=== PATIENT | male | born 1965 | race Caucasian/White ===

== ENCOUNTER 2017-07-28 18:16 | Inpatient (IN) | payer BC ==
[2017-07-28] MEDS ORDERED: ONDANSETRON 4 MG/2 ML VIAL IVP STA (19:04)
[2017-07-28] MEDS ORDERED: SODIUM CHLORIDE 0.9% 1,000 ML IV STA ×2 (19:04→20:10)
[2017-07-28] MEDS ORDERED: FAMOTIDINE 20 MG/2 ML VIAL IV STA (19:05)
--- NOTE | 2017-07-28 19:20 | ED ---
Nausea/Vomiting/Diarrhea HPI - General Chief complaint: Nausea/Vomiting/Diarrhea Stated complaint: Vomiting Time Seen by Provider: 07/28/17 18:25 Source: patient Mode of arrival: ambulatory Limitations: no limitations - History of Present Illness Initial comments: Pt present with nausea x 3 days. Patient states he feels dehydrated and has had decreased oral intake because he gets nauseated anytime he tries to eat. Patient said he had one mild bout of diarrhea this morning, denies any blood in his stools. Patient denies any abdominal pain. Patient states he's had dry heaves but no actual vomiting. Patient admits to mild rare nonproductive cough. Patient denies fevers, chills, headaches, constipation. Patient is to decreased urination over the past 3 days. Patient states she has a history of hypertension, denies any other past medical history. Denies history of abdominal surgeries. MD complaint: nausea - Related Data Home Medications Medication Instructions Recorded Confirmed Chlorthalidone 25 mg PO DAILY 11/04/15 07/28/17 Telmisartan 80 mg PO DAILY 11/04/15 07/28/17 Citalopram Hydrobromide [CeleXA] 10 mg PO DAILY 07/28/17 07/28/17 Multivitamins, Thera [Multivitamin 1 tab PO DAILY 07/28/17 07/28/17 (formulary)] Potassium 99 mg PO DAILY 07/28/17 07/28/17 Allergies Allergy/AdvReac Type Severity Reaction Status Date / Time No Known Allergies Allergy Verified 07/28/17 18:31 Review of Systems ROS Statement: Those systems with pertinent positive or pertinent negative responses have been documented in the HPI. ROS Other: All systems not noted in ROS Statement are negative. Constitutional: Denies: fever, chills, weakness Eyes: Denies: vision change ENT: Denies: throat pain, congestion Respiratory: Reports: cough. Denies: dyspnea, wheezes Cardiovascular: Denies: chest pain, palpitations Endocrine: Reports: fatigue Gastrointestinal: Reports: nausea, diarrhea. Denies: abdominal pain, vomiting, constipation, hematemesis, melena, hematochezia Genitourinary: Reports: other (Urine decreased). Denies: urgency, dysuria, frequency Musculoskeletal: Denies: back pain Skin: Denies: rash, lesions Neurological: Denies: headache Past Medical History Past Medical History: Hypertension History of Any Multi-Drug Resistant Organisms: None Reported Additional Past Surgical History / Comment(s): wisdom teeth removed Past Anesthesia/Blood Transfusion Reactions: No Reported Reaction Past Psychological History: No Psychological Hx Reported Smoking Status: Never smoker Past Alcohol Use History: Daily Past Drug Use History: None Reported - Past Family History Mother Family Medical History: No Reported History General Exam - General Exam Comments Initial Comments: Sitting up in bed. No acute distress. Conversing normally. Calm, pleasant. Limitations: no limitations General appearance: alert, in no apparent distress Head exam: Present: atraumatic, normocephalic Eye exam: Present: PERRL, EOMI ENT exam: Present: mucous membranes dry Neck exam: Present: full ROM. Absent: tenderness Respiratory exam: Present: normal lung sounds bilaterally. Absent: respiratory distress, wheezes, rales Cardiovascular Exam: Present: regular rate, normal rhythm GI/Abdominal exam: Present: soft. Absent: distended, tenderness, guarding, rebound, rigid, hernia (Nontender) Extremities exam: Present: normal inspection Neurological exam: Present: alert, oriented X3 Psychiatric exam: Present: normal affect, normal mood Skin exam: Present: warm, dry, intact, normal color. Absent: rash Course Vital Signs 07/28/17 07/28/17 07/28/17 18:18 19:14 20:36 Temperature 98.0 F Pulse Rate 92 86 92 Respiratory 20 18 18 Rate Blood Pressure 169/85 144/76 137/78 O2 Sat by Pulse 98 94 L 93 L Oximetry 07/28/17 20:37 Temperature Pulse Rate Respiratory Rate Blood Pressure O2 Sat by Pulse 94 L Oximetry Medical Decision Making - Medical Decision Making IV fluids, Zofran given. Patient denies abdominal pain, is nontender on exam. Patient flew be positive, Tamiflu ordered. Patient will be placed in isolation. Sodium 105, potassium 2.2. Potassium replaced 60 mEq orally, 20 mEq IV. Spoke with the admitting physician Dr. Ruth, up to patient condition results , discussed slow correction of sodium, he requests sodium tabs 4 times a day, thousand milliliter free water restriction, 3% hypertonic saline protocol, ICU admission. Spoke with Dr. Trevino, updated patient condition results, agrees with ICU admission. Patient updated with results and plan. Patient remains well appearing, conversing normally. No neurologic deficits on exam. No complaints of neurologic symptoms. - Lab Data Result diagrams: 07/28/17 19:15 07/28/17 19:15 Lab Results 07/28/17 07/28/17 07/28/17 Range/Units 19:15 19:15 19:15 WBC 9.9 (3.8-10.6) k/uL RBC 4.69 (4.30-5.90) m/uL Hgb 15.4 (13.0-17.5) gm/dL Hct 41.7 (39.0-53.0) % MCV 88.9 (80.0-100.0) fL MCH 32.8 (25.0-35.0) pg MCHC 36.9 (31.0-37.0) g/dL RDW 11.0 L (11.5-15.5) % Plt Count 299 (150-450) k/uL Neutrophils % (Manual) 83 % Band Neutrophils % 3 % Lymphocytes % (Manual) 12 % Monocytes % (Manual) 2 % Neutrophils # (Manual) 8.50 H (1.3-7.7) k/uL Lymphocytes # (Manual) 1.19 (1.0-4.8) k/uL Monocytes # (Manual) 0.20 (0-1.0) k/uL Nucleated RBCs 0 (0-0) /100 WBC Manual Slide Review Performed RBC Morphology Normal Hyperchromasia Marked Sodium 105 L* (137-145) mmol/L Potassium 2.2 L* (3.5-5.1) mmol/L Chloride 52 L* (98-107) mmol/L Carbon Dioxide 39 H (22-30) mmol/L Anion Gap 14 mmol/L BUN 17 (9-20) mg/dL Creatinine 0.80 (0.66-1.25) mg/dL Est GFR (MDRD) Af Amer >60 (>60 ml/min/1.73 sqM) Est GFR (MDRD) Non-Af >60 (>60 ml/min/1.73 sqM) Glucose 139 H (74-99) mg/dL Calcium 8.9 (8.4-10.2) mg/dL Total Bilirubin 3.6 H (0.2-1.3) mg/dL AST 73 H (17-59) U/L ALT 62 (21-72) U/L Alkaline Phosphatase 81 (38-126) U/L Total Protein 6.8 (6.3-8.2) g/dL Albumin 4.4 (3.5-5.0) g/dL Lipase 150 (23-300) U/L Influenza Type A RNA Not Detected (Not Detectd) Influenza Type B (PCR) Detected H (Not Detectd) Disposition Clinical Impression: Influenza B, Hypokalemia, Hyponatremia Disposition: ADMITTED IP TO THIS HOSP Condition: Good Referrals: Morgan Wright MD [Primary Care Provider] - 1-2 days
[2017-07-28 19:38] LABS: ALT 62 U/L (21-72); AST 73 U/L (17-59); Albumin 4.4 g/dL (3.5-5.0); Alkaline Phosphatase 81 U/L (38-126); Anion Gap 14 mmol/L; Blood Urea Nitrogen 17 mg/dL (9-20); Calcium 8.9 mg/dL (8.4-10.2); Carbon Dioxide 39 mmol/L (22-30); Glucose 139 mg/dL (74-99); Lipase 150 U/L (23-300); Total Bilirubin 3.6 mg/dL (0.2-1.3); Total Protein 6.8 g/dL (6.3-8.2)
[2017-07-28 19:40] LABS: HCT 41.7 % (39.0-53.0); HGB 15.4 gm/dL (13.0-17.5); Hyperchromasia Marked; MCH 32.8 pg (25.0-35.0); MCHC 36.9 g/dL (31.0-37.0); MCV 88.9 fL (80.0-100.0); Mean Platelet Volume 6.2; Platelet Count 299 k/uL (150-450); RBC 4.69 m/uL (4.30-5.90); WBC 9.9 k/uL (3.8-10.6)
[2017-07-28 19:50] LABS: Potassium 2.2 mmol/L (3.5-5.1); Sodium 105 mmol/L (137-145)
[2017-07-28 19:51] LABS: Chloride 52 mmol/L (98-107)
--- NOTE | 2017-07-28 19:56 | XR ---
EXAMINATION TYPE: XR chest 2V DATE OF EXAM: 07/28/2017 COMPARISON: NONE INDICATION: Cough congestion TECHNIQUE: Frontal and lateral views of the chest are obtained. FINDINGS: The heart size is normal. The pulmonary vasculature is normal. The lungs are clear. Azygos fissure is noted. IMPRESSION: 1. No acute pulmonary process.
[2017-07-28] MEDS ORDERED: POTASSIUM CHLORIDE ORAL LIQUID 40 MEQ/30 ML CUP PO ONE (20:09)
[2017-07-28 20:17] LABS: Band Neutrophils % 3 %; Lymphocytes # (M) 1.19 k/uL (1.0-4.8); Neutrophils % (M) 83 %; Nucleated Red Blood Cells 0 /100 WBC (0-0); Total Cells Counted 100
[2017-07-28] MEDS: POTASSIUM CHLORIDE 10 MEQ in SODIUM CHLORIDE 0.9% 100 ML IV SCH ×2 (20:59→22:09)
[2017-07-28] MEDS: OSELTAMIVIR 75 MG CAP PO SCH (22:07)
[2017-07-28] MEDS: SODIUM BICARBONATE TAB 650 MG TAB PO SCH (22:28)
[2017-07-28 22:48] LABS: Appearance,Urine Clear (Clear); Bilirubin,Urine Negative (Negative); Blood,Urine Negative (Negative); Color,Urine Yellow; Glucose,Urine (UA) Negative (Negative); Hyaline Casts,Urine 1 /lpf (0-2); Ketones,Urine 2+ (Negative); Leukocyte Esterase,Urine Negative (Negative); Mucus,Urine Rare /hpf; Nitrite,Urine Negative (Negative); Protein,Urine 1+ (Negative); RBC,Urine <1 /hpf (0-5); Specific Gravity,Urine 1.017 (1.001-1.035); Urobilinogen,Urine <2.0 mg/dL (<2.0); WBC,Urine 2 /hpf (0-5)
[2017-07-28] MEDS ORDERED: NALOXONE 0.4 MG/ML 1 ML VIAL IV PRN (23:38)
[2017-07-29] MEDS ORDERED: SODIUM CHLORIDE 3%(HYPERTONIC) 500 ML IV SCH (00:45)
[2017-07-29 01:00] LABS: Glucose,Whole Blood 112 mg/dL (75-99)
[2017-07-29 01:13] VITALS: BMI 27.6
[2017-07-29] MEDS: SODIUM BICARBONATE TAB 650 MG TAB PO SCH ×3 (01:54→12:24)
[2017-07-29] MEDS: POTASSIUM CHLORIDE ER 20 MEQ TAB.ER PO SCH ×5 (03:17→09:58)
[2017-07-29 05:41] LABS: Basophils % (A) 0 %; Eosinophils # (A) 0.1 k/uL (0-0.7); Eosinophils % (A) 1 %; HCT 40.3 % (39.0-53.0); HGB 14.6 gm/dL (13.0-17.5); Hyperchromasia Moderate; Lymphocytes # (A) 1.1 k/uL (1.0-4.8); Lymphocytes % (A) 10 %; MCH 32.9 pg (25.0-35.0); MCHC 36.2 g/dL (31.0-37.0); MCV 90.9 fL (80.0-100.0); Mean Platelet Volume 6.2; Monocytes # (A) 0.5 k/uL (0-1.0); Monocytes % (A) 5 %; Neutrophils # (A) 9.1 k/uL (1.3-7.7); Neutrophils % (A) 84 %; Platelet Count 321 k/uL (150-450); RBC 4.43 m/uL (4.30-5.90); RDW 11.2 % (11.5-15.5); WBC 10.8 k/uL (3.8-10.6)
[2017-07-29 06:26] LABS: Anion Gap 9 mmol/L; Blood Urea Nitrogen 13 mg/dL (9-20); Calcium 8.2 mg/dL (8.4-10.2); Carbon Dioxide 36 mmol/L (22-30); Glucose 99 mg/dL (74-99); Magnesium 2.1 mg/dL (1.6-2.3); Phosphorus 1.4 mg/dL (2.5-4.5)
[2017-07-29 06:35] LABS: Sodium 111 mmol/L (137-145)
[2017-07-29 06:36] LABS: Chloride 66 mmol/L (98-107); Potassium 2.8 mmol/L (3.5-5.1)
[2017-07-29] MEDS ORDERED: SODIUM CHLORIDE 0.9% 1,000 ML IV SCH ×2 (06:45→17:15)
[2017-07-29] MEDS ORDERED: Phosphorus Replacement Protoco 1 EACH MISC MISCELLANE PRN (06:48)
[2017-07-29 07:09] LABS: Phosphorus 1.3 mg/dL (2.5-4.5)
[2017-07-29] MEDS: LOSARTAN 50 MG TAB PO SCH (08:36)
[2017-07-29] MEDS: CITALOPRAM HYDROBROMIDE 10 MG TAB PO SCH (08:36)
[2017-07-29] MEDS: OSELTAMIVIR 75 MG CAP PO SCH ×2 (08:36→20:34)
[2017-07-29] MEDS: PANTOPRAZOLE 40 MG TABLET PO SCH (08:36)
[2017-07-29] MEDS: HEPARIN SODIUM,PORCINE 5,000 UNIT/ML 1 ML VIAL SQ SCH ×2 (08:38→20:34)
[2017-07-29] MEDS: POTASSIUM PHOSPHATE 10 MMOL in SODIUM CHLORIDE 0.9% 250 ML IV SCH ×2 (08:43→11:49)
[2017-07-29] MEDS ORDERED: CHLORTHALIDONE 25 MG TAB PO SCH (09:00)
[2017-07-29 10:14] LABS: Anion Gap 12 mmol/L; Blood Urea Nitrogen 11 mg/dL (9-20); Calcium 7.8 mg/dL (8.4-10.2); Carbon Dioxide 28 mmol/L (22-30); Glucose 95 mg/dL (74-99); Potassium 3.4 mmol/L (3.5-5.1)
[2017-07-29 10:19] LABS: Chloride 72 mmol/L (98-107); Sodium 112 mmol/L (137-145)
--- NOTE | 2017-07-29 10:41 | P.CNPUL ---
History of Present Illness Consult date: 07/29/17 Reason for consult: other Chief complaint: Hyponatremia, dehydration History of present illness: Consult dated 07/29/2017 This is a 52-year-old male who was seen in the emergency room. I was called by the emergency room physician. The patient has had nausea for 3 days with poor oral intake. He apparently states he really did not feel like eating or drinking anything. I did also one episode of diarrhea. Anyway, the patient denied any fever chills. Denies any chest pain or chest discomfort. There is no shortness of breath. Of note was the fact that the patient had impaired urination over last 3 days and also was found to have a sodium level of 105 on electrolyte profile. He does have a history of hypertension. The patient's sodium increased from 105-111 just on a saline IV. The patient is on chlorthalidone as a diuretic which is been known to cause hyponatremia. The patient feels very very weak. His mucous membranes are dry. His urine output is poor. He states he is feeling a bit better than he did in the emergency room yesterday. Currently is not receiving any supplemental oxygen. His IV is saline at 50 mL an hour. Potassium is still low at 2.8. Review of Systems A 12 point review of system is positive for weakness and fatigue. He also feels dehydrated and dry. He's got nausea. One episode of diarrhea. Also complains of poor urine output. Past Medical History Past Medical History: Hypertension History of Any Multi-Drug Resistant Organisms: None Reported Past Surgical History: No Surgical Hx Reported Additional Past Surgical History / Comment(s): wisdom teeth removed Past Anesthesia/Blood Transfusion Reactions: No Reported Reaction Past Psychological History: No Psychological Hx Reported Smoking Status: Never smoker Past Alcohol Use History: Daily Past Drug Use History: None Reported - Past Family History Mother Family Medical History: No Reported History Medications and Allergies Home Medications Medication Instructions Recorded Confirmed Type Chlorthalidone 25 mg PO DAILY 11/04/15 07/28/17 History Telmisartan 80 mg PO DAILY 11/04/15 07/28/17 History Citalopram Hydrobromide [CeleXA] 10 mg PO DAILY 07/28/17 07/28/17 History Multivitamins, Thera [Multivitamin 1 tab PO DAILY 07/28/17 07/28/17 History (formulary)] Potassium 99 mg PO DAILY 07/28/17 07/28/17 History Allergies Allergy/AdvReac Type Severity Reaction Status Date / Time No Known Allergies Allergy Verified 07/28/17 18:31 Physical Exam Osteopathic Statement: *. No significant issues noted on an osteopathic structural exam other than those noted in the History and Physical/Consult. Vitals: Vital Signs Temp Pulse Resp BP Pulse Ox 07/29/17 08:00 98 F 82 28 H 128/81 93 L 07/29/17 07:00 78 14 109/68 95 07/29/17 06:00 81 13 119/72 94 L 07/29/17 05:00 78 13 133/69 97 07/29/17 04:00 97.9 F 79 15 140/74 98 07/29/17 03:00 82 24 138/70 96 07/29/17 02:00 98 22 124/76 97 07/29/17 01:00 97.8 F 87 20 123/78 97 07/29/17 00:13 97.2 F L 86 15 134/75 97 07/28/17 23:03 97.5 F L 88 18 127/78 97 07/28/17 22:11 97.5 F L 88 18 139/77 96 07/28/17 20:37 94 L 07/28/17 20:36 92 18 137/78 93 L 07/28/17 19:14 86 18 144/76 94 L 07/28/17 18:18 98.0 F 92 20 169/85 98 Intake and Output 07/28/17 07/29/17 07/29/17 22:59 06:59 14:59 Intake Total 140 100 Output Total 50 600 Balance -50 -460 100 Intake: IV 120 100 Sodium Chloride 0.9% 1, 100 000 ml @ 50 mls/hr IV . Q20H [facility] Rx#:[id number] Sodium Chloride 3%( 120 Hypertonic) 500 ml @ 20 mls/hr IV .Q24H [facility] Rx#: [id number] Oral 20 Output: Urine 50 600 Other: Voiding Method Urinal # Voids 1 1 # Bowel Movements 1 1 Weight 77.7 kg No acute distress, oriented 3. HEENT examination is grossly unremarkable. Mucous membranes dry. No oral lesions. Neck supple. Full range of motion. No adenopathy thyromegaly or neck vein distention. Cardiovascular examination reveals regular rhythm rate. S1-S2 normal. No S3 or S4. No discernible murmur noted. Lungs reveal clear breath sounds. Her sounds are equal bilaterally. No adventitious lung sounds including wheezes rhonchi or crackles. Abdomen soft bowel sounds are heard. No masses or tenderness. Extremities are intact. No cyanosis clubbing or edema. Skin is without rash or lesion. Neurologic examination is brief but nonfocal. Results - Laboratory Findings CBC and BMP: 07/29/17 05:23 07/29/17 09:31 Abnormal lab findings: Abnormal Labs 07/28/17 07/28/17 07/28/17 19:15 19:15 19:15 WBC RDW 11.0 L Neutrophils # Neutrophils # (Manual) 8.50 H Sodium 105 L* Potassium 2.2 L* Chloride 52 L* Carbon Dioxide 39 H Glucose 139 H POC Glucose (mg/dL) Calcium Phosphorus Total Bilirubin 3.6 H AST 73 H Urine Protein Urine Ketones Urine Mucus Influenza Type B (PCR) Detected H 07/28/17 07/29/17 07/29/17 22:28 00:58 01:05 WBC RDW Neutrophils # Neutrophils # (Manual) Sodium 108 L* Potassium Chloride Carbon Dioxide Glucose POC Glucose (mg/dL) 112 H Calcium Phosphorus Total Bilirubin AST Urine Protein 1+ H Urine Ketones 2+ H Urine Mucus Rare H Influenza Type B (PCR) 07/29/17 07/29/17 07/29/17 01:05 05:23 05:23 WBC 10.8 H RDW 11.2 L Neutrophils # 9.1 H Neutrophils # (Manual) Sodium 111 L* Potassium 2.7 L* 2.8 L* Chloride 66 L* Carbon Dioxide 36 H Glucose POC Glucose (mg/dL) Calcium 8.2 L Phosphorus 1.4 L Total Bilirubin AST Urine Protein Urine Ketones Urine Mucus Influenza Type B (PCR) 07/29/17 07/29/17 05:23 09:31 WBC RDW Neutrophils # Neutrophils # (Manual) Sodium 112 L* Potassium 3.4 L Chloride 72 L* Carbon Dioxide Glucose POC Glucose (mg/dL) Calcium 7.8 L Phosphorus 1.3 L Total Bilirubin AST Urine Protein Urine Ketones Urine Mucus Influenza Type B (PCR) - Diagnostic Findings Chest x-ray: image reviewed (The patient's evaluated. The patient's interviewed. Labs x-rays a medications are all reviewed.) Assessment and Plan Assessment: Assessment Hyponatremia, likely related to dehydration and exacerbated by the diuretic the patient's on History of hypertension Profound electrolyte disturbance including hyponatremia and hypokalemia. Nausea vomiting and diarrhea with poor oral intake of both food and fluids Plan: Plan dated 07/29/2017 The patient being rehydrated. Sodium has gone from 105 to 112, which is appropriate. Sodium should not rise more than 8 mEq per liter and the first 24 hours. The patient's feeling a bit less dehydrated. Mucous membranes are bit more moist. His appetite still poor. We'll continue to follow. Urine output is poor. Time with Patient: Greater than 30
[2017-07-29 10:59] LABS: Potassium,Urine Random 42.9 mmol/L
[2017-07-29 11:04] LABS: Creatinine,Urine Random 109.8 mg/dL
--- NOTE | 2017-07-29 17:54 | HP ---
HISTORY AND PHYSICAL DATE OF ADMISSION: 07/28/17 PRESENTING COMPLAINT: Nausea, vomiting, diarrhea. HISTORY OF PRESENTING COMPLAINT: A very pleasant 52-year-old patient of Dr. Wright whose chronic stable medical conditions include that of hypertension, over a week ago started up with nausea, vomiting, diarrhea which continues to get worse. Denies any obvious fevers, minimal congestion, weak, tired, run down. Denies any blood in the stools. Just run down. Patient presented to the ER was found have a sodium of 105 and Influenza B positive. Started on Tamiflu, admitted to the ICU. Also, hypertonic saline was ordered overnight. Still feels weak, tired, run down. REVIEW OF SYSTEMS: CONSTITUTIONAL: Weak, tired. HEENT: None. RESPIRATORY: None. CARDIOVASCULAR: None. GASTROINTESTINAL: As above. GENITOURINARY: None. MUSCULOSKELETAL: None. DERMATOLOGIC: None. HEMATOLOGIC: None. LYMPHATIC: None. PSYCHIATRY: None. NEUROLOGICAL: None. PAST MEDICAL HISTORY: Hypertension. PAST SURGICAL HISTORY: None. SOCIAL HISTORY: Does not smoke. Alcohol about 2 beers a day. Lives by himself. Patient works at . FAMILY HISTORY: Reviewed; noncontributory to presentation. HOME MEDICATIONS: 1. Telmisartan 80 mg p.o. daily. 2. Potassium 99 mEq p.o. daily. 3. Multivitamin 1 tablet p.o. daily. 4. Celexa 10 mg p.o. daily. 5. Chlorthalidone 25 mg p.o. daily. ALLERGIES: None. PHYSICAL EXAMINATION: Vital signs on presentation: Temperature 98, pulse 92, respiratory 20, blood pressure 169/85, pulse ox 98% on room air. GENERAL APPEARANCE: Average build, lying in bed, tired appearing. EYES: Pupils equal. Conjunctivae normal. HEENT: Oral cavity normal. NECK: JVD not raised. Mass not palpable. RESPIRATORY: Effort, lungs are clear. CARDIOVASCULAR: 1st and 2nd sounds normal. No edema. ABDOMEN: Soft, nontender. Liver and spleen not palpable. LYMPHATIC: No lymph palpable in neck or axillae. PSYCHIATRY: Alert and oriented x3. Mood and affect normal. NEUROLOGICAL: Pupils equal. Cranial nerves grossly intact. Power and sensation grossly intact. INVESTIGATIONS: White count 9.9, repeat is 10.8, hemoglobin 15.4, sodium was 105, potassium was 2.2, chloride 62, repeat sodium was 112, chloride 72. BUN and creatinine are normal. The patient's bicarb is 39. Influenza B was detected. ASSESSMENT: 1. Acute influenza B infection. 2. Probably viral gastroenteritis. 3. Severe hyponatremia with hypochloremia from severe nausea, vomiting and probably poor intake of salt intake. 4. Severe hypokalemia. PLAN: Patient did receive hypertonic saline in the ICU. Will switch over because of hypovolemia, will switch the patient over to normal saline. Patient also needs a chloride component of the same. We will put the patient on fluid restriction of 1000 mL a day and avoid tea, coffee and free fluids. Will also add salt tablets. Because the patient is in ICU Dr. Trevino from Critical Care was consulted. Patient's potassium was aggressively being replaced. MMTRAVL / BHAVANIN: [id number] /
[2017-07-29] MEDS ORDERED: SODIUM CHLORIDE TAB 1 GM TAB PO SCH (18:00)
[2017-07-30 00:47] LABS: Anion Gap 9 mmol/L; Blood Urea Nitrogen 10 mg/dL (9-20); Calcium 8.7 mg/dL (8.4-10.2); Carbon Dioxide 35 mmol/L (22-30); Glucose 96 mg/dL (74-99); Potassium 3.3 mmol/L (3.5-5.1); Sodium 124 mmol/L (137-145)
[2017-07-30 00:58] LABS: Chloride 80 mmol/L (98-107)
[2017-07-30] MEDS ORDERED: Potassium Replacement Protocol 1 EACH MISC MISCELLANE PRN (01:07)
[2017-07-30] MEDS: POTASSIUM CHLORIDE ER 20 MEQ TAB.ER PO SCH ×2 (02:35→05:13)
[2017-07-30] MEDS ORDERED: DEXTROSE 5% IN WATER 1,000 ML IV ONE (06:29)
[2017-07-30 06:35] LABS: Anion Gap 10 mmol/L; Blood Urea Nitrogen 10 mg/dL (9-20); Calcium 8.8 mg/dL (8.4-10.2); Carbon Dioxide 32 mmol/L (22-30); Chloride 82 mmol/L (98-107); Glucose 94 mg/dL (74-99); Magnesium 2.4 mg/dL (1.6-2.3); Phosphorus 1.5 mg/dL (2.5-4.5); Potassium 3.1 mmol/L (3.5-5.1); Sodium 124 mmol/L (137-145)
[2017-07-30] MEDS: PANTOPRAZOLE 40 MG TABLET PO SCH (06:39)
[2017-07-30] MEDS ORDERED: POTASSIUM CHLORIDE ER 20 MEQ TAB.ER PO STA ×3 (07:04→21:36)
[2017-07-30] MEDS ORDERED: POTASSIUM PHOSPHATE 15 MMOL in SODIUM CHLORIDE 0.9% 250 ML IV ONE (07:15)
--- NOTE | 2017-07-30 07:22 | CONS ---
CONSULTATION DATE OF CONSULTATION: 07/29/2017 REASON FOR CONSULT: Hyponatremia. HISTORY OF PRESENT ILLNESS: The patient is a 52-year-old male who was admitted to the hospital with complaints of not feeling well. He also had some nausea, vomiting, and diarrhea. The patient denies any prior history of hyponatremia. He has been on chlorthalidone at home for hypertension. He denied any numbness, tingling, weakness. The patient's sodium was 108 mEq/L on initial admission. He was initially placed on 3% saline, which was eventually discontinued when serum sodium was at 112 mEq/L. The patient has already had a more than 10 mEq increase in his serum sodium in about 17 hours where we would want about 10 to 12 in 24 hours. His saline was discontinued this morning. Urine sodium was 58. Urine osmolality was at 500 on initial admission. Patient's blood pressure has been slightly on the lower side with systolic around 105 to 118 . He was not hypotensive on initial admission. PAST MEDICAL HISTORY: Hypertension. MEDICATIONS: Medications prior to admission included Celexa, potassium, chlorthalidone, telmisartan, multivitamins. SOCIAL HISTORY: Negative for smoking, drug abuse or alcohol abuse. ALLERGIES: None. REVIEW OF SYSTEMS: As per HPI, other systems negative. PHYSICAL EXAMINATION: On examination, patient is comfortable, awake, alert, oriented x3, is not in any acute distress. Blood pressure is 119/79 this morning. Patient is afebrile. EXAMINATION OF THE HEART: S1, S2. EXAMINATION OF THE LUNGS: Bilateral breath sounds are heard. Abdomen is soft, nontender. Examination of the lower extremities shows no evidence of edema. APPLICATIONS SYSTEM ANALYST exam is grossly intact. Patient moving all 4 extremities. LABS: Labs show serum sodium of 112 this morning and 117 at 1:30 p.m. Potassium was low on admission initially at 2.7, increased up to 3.4. Hemoglobin at 14.6 g/dL. Phosphorus was low at 1.3. Cortisol was 18. Urine osmolality 500. Urine sodium 58. ASSESSMENT: 1. Hypovolemic hyponatremia, currently improved. The patient is status post 3% saline. His sodium continues to rise, and therefore the normal saline was discontinued this morning. The patient has already had a 10 mEq increase in his sodium in about 15 hours and ideally we would want about 12 to 15 mEq increase in sodium in about 24 hours. We will continue to monitor the electrolytes and repeat sodium in about 6 hours. At that time, all electrolytes will be done including phosphorus. 2. Influenza B, currently maintained on Tamiflu. 3. Hypertension. Blood pressure is currently controlled. May continue with the Cozaar. He is on a high dose of Cozaar. I will decrease it to 100 mg daily as blood pressure has been about 100 to 103 mmHg systolic. PLAN: Discontinue saline. Monitor electrolytes closely. The sodium should not rise more than about 12 to 15 mEq in 24 hours. The patient may need to be started on D5W or receive DDAVP if his sodium continues to rise at a fast pace. MMODL / IJN: [id number] /
[2017-07-30 08:00] LABS: Basophils % (A) 0 %; Eosinophils % (A) 0 %; HCT 44.6 % (39.0-53.0); HGB 15.4 gm/dL (13.0-17.5); Lymphocytes # (A) 1.1 k/uL (1.0-4.8); Lymphocytes % (A) 12 %; MCH 32.9 pg (25.0-35.0); MCHC 34.5 g/dL (31.0-37.0); MCV 95.2 fL (80.0-100.0); Mean Platelet Volume 6.8; Monocytes # (A) 0.5 k/uL (0-1.0); Monocytes % (A) 6 %; Neutrophils # (A) 7.6 k/uL (1.3-7.7); Neutrophils % (A) 81 %; Platelet Count 291 k/uL (150-450); RBC 4.68 m/uL (4.30-5.90); RDW 11.8 % (11.5-15.5); WBC 9.3 k/uL (3.8-10.6)
[2017-07-30] MEDS: HEPARIN SODIUM,PORCINE 5,000 UNIT/ML 1 ML VIAL SQ SCH ×2 (08:27→21:27)
[2017-07-30] MEDS: CITALOPRAM HYDROBROMIDE 10 MG TAB PO SCH (08:27)
[2017-07-30] MEDS: OSELTAMIVIR 75 MG CAP PO SCH ×2 (08:28→21:27)
[2017-07-30] MEDS: POTAS-SOD-PHOS 278-164-250 MG 1 EACH PACKET PO SCH ×2 (08:28→21:27)
[2017-07-30] MEDS: LOSARTAN 50 MG TAB PO SCH (08:33)
--- NOTE | 2017-07-30 09:37 | P.PN ---
Subjective Progress Note Date: 07/30/17 Principal diagnosis: Acute influenza B infection, hypokalemia, hyponatremia This is a very pleasant 52-year-old gentleman who was admitted on 07/29/2017 with complaints of nausea, vomiting, diarrhea for 3 days prior to his arrival. He was becoming quite weak and dizzy. He was found to have a sodium of 105 and a potassium of 2.2. He is seen today again in follow-up in the intensive care unit. Presently he is awake and alert in no acute distress. His sodium has gradually been corrected to 124 currently. Potassium is 3.1. Bicarb 32. Anion gap 10. No leukocytosis. He is currently afebrile. No tachycardia. No tachypnea. Blood pressure stable. He is maintaining good O2 saturations in the mid 90s on room air. He is still quite weak and fatigued. Better than yesterday but not near his baseline. He is tolerating a small amount of food this morning. Tolerating liquids. He is currently on Tamiflu. His chlorthalidone has been discontinued. Objective - Vital Signs Vital signs: Vital Signs Temp 97.1 F L 07/30/17 08:00 Pulse 95 07/30/17 08:00 Resp 18 07/30/17 08:00 BP 107/75 07/30/17 08:00 Pulse Ox 94 L 07/30/17 08:00 Intake & Output 07/29/17 07/30/17 07/30/17 18:59 06:59 18:59 Intake Total 1406 100 Output Total 0 0 Balance 1406 0 100 Weight 73.1 kg Intake: IV 400 100 Dextrose 5% in Water 1, 100 000 ml @ 50 mls/hr IV . Q20H [facility] Rx#:[id number] Sodium Chloride 0.9% 1, 400 000 ml @ 50 mls/hr IV . Q20H [facility] Rx#:[id number] Intake, IV Titration 506 Amount Potassium Phosphate 10 506 mmol In Sodium Chloride 0 .9% 250 ml @ 84.444 mls/ hr IV Q3H [facility] Rx#: [id number] Oral 500 Output: Urine 0 Stool 0 0 Other: Voiding Method Urinal # Voids 1 1 2 # Bowel Movements 0 1 - Exam GENERAL EXAM: Alert, still somewhat weak and fatigued, comfortable in no apparent distress. HEAD: Normocephalic. EYES: Normal reaction of pupils, equal size. NOSE: Clear with pink turbinates. THROAT: No erythema or exudates. NECK: No masses, no JVD. CHEST: No chest wall deformity. LUNGS: Equal air entry with no crackles, wheeze, rhonchi or dullness. CVS: S1 and S2 normal with no audible murmur, regular rhythm. ABDOMEN: No hepatosplenomegaly, normal bowel sounds, no guarding or rigidity. SPINE: No scoliosis or deformity SKIN: No rashes CENTRAL NERVOUS SYSTEM: No focal deficits, tone is normal in all 4 extremities. EXTREMITIES: There is no peripheral edema. No clubbing, no cyanosis. Peripheral pulses are intact. - Labs CBC & Chem 7: 07/30/17 05:20 07/30/17 05:20 Labs: Abnormal Lab Results - Last 24 Hours (Table) 07/29/17 07/29/17 07/29/17 Range/Units 09:31 13:24 17:06 Sodium 112 L* 117 L* 119 L* (137-145) mmol/L Potassium 3.4 L (3.5-5.1) mmol/L Chloride 72 L* (98-107) mmol/L Carbon Dioxide (22-30) mmol/L Calcium 7.8 L (8.4-10.2) mg/dL Phosphorus (2.5-4.5) mg/dL Magnesium (1.6-2.3) mg/dL 07/30/17 07/30/17 Range/Units 00:00 05:20 Sodium 124 L 124 L (137-145) mmol/L Potassium 3.3 L 3.1 L (3.5-5.1) mmol/L Chloride 80 L* 82 L (98-107) mmol/L Carbon Dioxide 35 H 32 H (22-30) mmol/L Calcium (8.4-10.2) mg/dL Phosphorus 1.5 L (2.5-4.5) mg/dL Magnesium 2.4 H (1.6-2.3) mg/dL Assessment and Plan Assessment: Impression: #1 Acute influenza B infection causing significant dehydration, hyponatremia and hypokalemia. #2 Hyponatremia, improving, current sodium 124. #3 Hypokalemia, improving, current potassium 3.1. #4 History of hypertension on chlorthalidone in the outpatient setting, discontinued. Plan: The patient was seen and evaluated by Dr. Trevino. We'll continue with his current treatment plan. Continue to gradually improve his sodium levels. Not to exceed greater than 8 mmol per liter per 24 hours. His potassium level be corrected as well. He is cleared for transfer out of the intensive care unit today. He'll continue his treatment of Tamiflu. Continue to hold the chlorthalidone. We will continue to follow and make further recommendations based on his clinical status. I, the cosigning physician, performed a history & physical examination of the patient. Lungs sounds are clear. Maintaining good O2 saturations in the 90s on room air. I discussed the assessment and plan of care with my nurse practitioner, Saida Meraz. I attest to the above note as dictated by her.
[2017-07-30 16:39] LABS: Phosphorus 2.5 mg/dL (2.5-4.5); Potassium 3.3 mmol/L (3.5-5.1)
--- NOTE | 2017-07-30 17:08 | P.PN ---
Progress Note - Text Progress Note Date: 07/30/17 DATE OF SERVICE: 07/30/2017 PRESENTING COMPLAINT: Nausea vomiting diarrhea HISTORY OF PRESENT ILLNESS: 52-year-old male who developed nausea vomiting diarrhea which continued to get worse over the previous week. No obvious fevers minimal congestion weak tired and rundown. No blood in stools. Just rundown. Diagnostics revealed a sodium of 105 and positive for influenza B started on Tamiflu admitted to the ICU and hypertonic saline was ordered. INTERVAL HISTORY: 07/30/2017 Patient lying in bed, appears anxious and ill. Has had no further episodes of nausea or vomiting diarrhea has slowed considerably. Tolerated his clear liquid diet this morning. We'll advance diet. Sodium has improved in the past 24 hours. Currently on fluid restriction to help normalize sodium.. Ambulatory to and from the bathroom without difficulty. Last BM 07/29/2017 REVIEW OF SYSTEMS: Done for constitutional ,cardiovascular, GI, pulmonary with relevant findings as above. CURRENT MEDICATIONS Celexa, losartan, Tamiflu, Protonix. PHYSICAL EXAM VITAL SIGNS: Temperature 97.1, pulse 95, respirations 18, blood pressure 107/75, oxygen saturation 94% on room air. GENERAL APPEARANCE: Lying in bed, anxious and tired appearing but not in distress. HENT: Normocephalic, JVD not raised. Mass not palpable. Oral cavity normal, external appearance of ears and nose normal. EYES:Pupils equal. Conjunctiva normal. RESPIRATORY: Respiratory effort mildly increased. Lungs diminished to auscultation. CARDIOVASCULAR: First and second sounds normal. No edema. ABDOMEN: Soft. Liver and spleen not palpable. No tenderness. No mass palpable. PSYCHIATRY: Alert and oriented x3. Mood and affect normal. INVESTIGATIONS: LABS: CBC unremarkable, sodium 124, potassium 3.1, chloride 82, carbon dioxide 32, phosphorus 1.5, magnesium 2.4. ASSESSMENT: -Acute Influenza B infection -Viral gastroenteritis -Severe hyponatremia with hypochloremia from severe nausea vomiting and probably poor intake of salt -Severe hypokalemia, improving, 3.1 today PLAN: Continue fluid restriction with 1000 mL a day and avoid tea and coffee and other free fluids. Sodium correction should not exceed greater than 15 mEq per 24 hours. Potassium supplemented. Redraw later tonight. Continue to hold chlorthalidone. Patient will likely transfer to regular medical floor later today. Plan of care discussed with the patient at bedside and he is agreeable. We'll follow closely. CORRECTIONS SPECIALIST statement: Patient was seen and examined by nurse practitioner Flora Marshall and all elements of the case discussed with attending Dr. Ruth
--- NOTE | 2017-07-30 17:49 | PN ---
PROGRESS NOTE Patient is seen for followup for hyponatremia. This morning patient's serum sodium was 124. He was started on D5W for about 5 hours. He is currently feeling much better. He has been eating as well. On examination, blood pressure was 96/64, heart rate 78 per minute. Patient is afebrile. EXAMINATION OF THE HEART: S1, S2. EXAMINATION OF LUNGS: Bilateral breath sounds are heard. ABDOMEN: Soft, non-tender. Examination of lower extremities shows no evidence of edema. FOREST SCIENTIST exam is grossly intact. Labs show sodium 124, potassium 3.1, chloride 82, BUN 10, serum creatinine 0.9, phosphorus of 1.5, magnesium 2.4. ASSESSMENT: 1. Hypovolemic hyponatremia. Serum sodium was at 124 and patient was started on D5W to avoid rapid increase in his serum sodium level. I will repeat another sodium once the D5W is discontinued and we will continue to avoid saline or salt tablets at this time. 2. Influenza B, maintained on Tamiflu. 3. Intravascular volume depletion, currently improved. 4. Hypophosphatemia, maintained on replacement. 5. Hypokalemia, currently being replaced. Magnesium was 2.4. PLAN: Continue to monitor serum sodium levels. Replace potassium, phosphorus and repeat electrolytes. MMODL / IJN: [id number] /
[2017-07-30 19:59] LABS: Potassium 3.6 mmol/L (3.5-5.1)
--- NOTE | 2017-07-31 | PN ---
PROGRESS NOTE DATE OF SERVICE: 07/30/2017. ATTENDING NOTE: The patient seen and examined by me. I discussed with my nurse practitioner, Ms. Marshall. Patient admitted with influenza B, severe hyponatremia, status post hypertonic saline. Doing much better, tolerating a diet. Has been out of bed. EXAMINATION: Afebrile, respirations 18, blood pressure 99/61, pulse ox 94% on room air. Lungs are clear. CARDIOVASCULAR: First and second sounds normal. INVESTIGATIONS: Sodium 126, potassium 3.3. ASSESSMENT: 1. Severe hypoosmolar hyponatremia. 2. Hypokalemia, improved. 3. Acute viral gastroenteritis, improved. 4. Acute influenza B infection, improved. PLAN: Patient will be moved out of the ICU. Patient is on Tamiflu. Saline and salt tablets were held by Nephrology. Will follow along. EDGARDO / VISHAL: [id number] /
[2017-07-31 08:26] VITALS: RESP 16
[2017-07-31] MEDS: CITALOPRAM HYDROBROMIDE 10 MG TAB PO SCH (08:27)
[2017-07-31] MEDS: PANTOPRAZOLE 40 MG TABLET PO SCH (08:27)
[2017-07-31] MEDS: LOSARTAN 50 MG TAB PO SCH (08:27)
[2017-07-31] MEDS: HEPARIN SODIUM,PORCINE 5,000 UNIT/ML 1 ML VIAL SQ SCH (08:27)
[2017-07-31] MEDS: POTAS-SOD-PHOS 278-164-250 MG 1 EACH PACKET PO SCH (08:28)
[2017-07-31] MEDS: OSELTAMIVIR 75 MG CAP PO SCH (08:28)
[2017-07-31 09:40] LABS: Anion Gap 12 mmol/L; Blood Urea Nitrogen 9 mg/dL (9-20); Calcium 9.4 mg/dL (8.4-10.2); Carbon Dioxide 32 mmol/L (22-30); Chloride 85 mmol/L (98-107); Glucose 97 mg/dL (74-99); Magnesium 1.8 mg/dL (1.6-2.3); Phosphorus 2.7 mg/dL (2.5-4.5); Sodium 129 mmol/L (137-145)
[2017-07-31 09:52] LABS: Basophils % (A) 0 %; Eosinophils # (A) 0.1 k/uL (0-0.7); Eosinophils % (A) 1 %; HCT 46.7 % (39.0-53.0); HGB 15.9 gm/dL (13.0-17.5); Lymphocytes # (A) 1.5 k/uL (1.0-4.8); Lymphocytes % (A) 13 %; MCV 97.1 fL (80.0-100.0); Mean Platelet Volume 6.7; Monocytes # (A) 0.6 k/uL (0-1.0); Monocytes % (A) 5 %; Neutrophils # (A) 8.8 k/uL (1.3-7.7); Neutrophils % (A) 79 %; Platelet Count 363 k/uL (150-450); RBC 4.81 m/uL (4.30-5.90)
[2017-07-31 10:31] LABS: Potassium 3.5 mmol/L (3.5-5.1)
--- NOTE | 2017-07-31 13:10 | P.PN ---
Subjective Progress Note Date: 07/31/17 Principal diagnosis: Acute influenza B infection, causing significant dehydration, hyponatremia and hypokalemia. This is a very pleasant 52-year-old gentleman who was admitted on 07/29/2017 with complaints of nausea, vomiting, diarrhea for 3 days prior to his arrival. He was becoming quite weak and dizzy. He was found to have a sodium of 105 and a potassium of 2.2. He is seen today again in follow-up in the intensive care unit. Presently he is awake and alert in no acute distress. His sodium has gradually been corrected to 124 currently. Potassium is 3.1. Bicarb 32. Anion gap 10. No leukocytosis. He is currently afebrile. No tachycardia. No tachypnea. Blood pressure stable. He is maintaining good O2 saturations in the mid 90s on room air. He is still quite weak and fatigued. Better than yesterday but not near his baseline. He is tolerating a small amount of food this morning. Tolerating liquids. He is currently on Tamiflu. His chlorthalidone has been discontinued. On 07/31/2017 patient seen in follow-up on medical surgical floor. He was transferred out of ICU yesterday, no acute events overnight, he denies any acute distress. His diarrhea is subsiding, he only had 2 episodes of loose bowel movements this morning. No nausea, no abdominal pain. He is tolerating oral intake well. On today's labs, his white count is 11.0, hemoglobin is 15.9 , his serum sodium is up to 129, up from 124 from yesterday's labs, serum potassium is 3.5, chloride is 85, carbon dioxide is 32, BUN is 9, and creatinine 0.84. Nephrology is following regarding patient's hyponatremia. Objective - Vital Signs Vital signs: Vital Signs Temp 97.8 F 07/31/17 07:00 Pulse 86 07/31/17 07:00 Resp 16 07/31/17 07:00 BP 105/69 07/31/17 07:00 Pulse Ox 95 07/31/17 07:00 Intake & Output 07/30/17 07/31/17 07/31/17 18:59 06:59 18:59 Intake Total 500 Balance 500 Weight 73.1 kg 73 kg Intake: IV 250 Dextrose 5% in Water 1, 250 000 ml @ 50 mls/hr IV . Q20H ONE Rx#:[id number] Intake, IV Titration 250 Amount Potassium Phosphate 15 250 mmol In Sodium Chloride 0 .9% 250 ml @ 85 mls/hr IV ONCE ONE Rx#:[id number] Other: Voiding Method Toilet Toilet # Voids 2 1 1 - Exam GENERAL EXAM: Alert, still somewhat weak and fatigued, comfortable in no apparent distress. HEAD: Normocephalic. EYES: Normal reaction of pupils, equal size. NOSE: Clear with pink turbinates. THROAT: No erythema or exudates. NECK: No masses, no JVD. CHEST: No chest wall deformity. LUNGS: Equal air entry with no crackles, wheeze, rhonchi or dullness. CVS: S1 and S2 normal with no audible murmur, regular rhythm. ABDOMEN: No hepatosplenomegaly, normal bowel sounds, no guarding or rigidity. SPINE: No scoliosis or deformity SKIN: No rashes CENTRAL NERVOUS SYSTEM: No focal deficits, tone is normal in all 4 extremities. EXTREMITIES: There is no peripheral edema. No clubbing, no cyanosis. Peripheral pulses are intact. - Labs CBC & Chem 7: 07/31/17 08:11 07/31/17 08:11 Labs: Abnormal Lab Results - Last 24 Hours (Table) 07/30/17 07/30/17 07/31/17 Range/Units 11:26 19:22 08:11 WBC 11.0 H (3.8-10.6) k/uL Neutrophils # 8.8 H (1.3-7.7) k/uL Sodium 126 L 124 L (137-145) mmol/L Potassium 3.3 L (3.5-5.1) mmol/L Chloride (98-107) mmol/L Carbon Dioxide (22-30) mmol/L 07/31/17 Range/Units 08:11 WBC (3.8-10.6) k/uL Neutrophils # (1.3-7.7) k/uL Sodium 129 L (137-145) mmol/L Potassium (3.5-5.1) mmol/L Chloride 85 L (98-107) mmol/L Carbon Dioxide 32 H (22-30) mmol/L Assessment and Plan Plan: Assessment: #1 Acute influenza B infection causing significant dehydration, hyponatremia and hypokalemia. #2 Hyponatremia, improving, current sodium 129. #3 Hypokalemia, improving, current potassium 3.5. #4 History of hypertension on chlorthalidone in the outpatient setting, discontinued. Plan: Patient's electrolyte imbalance is improving, she is serum sodium is up to 129 today, his diarrhea is reportedly improving, 2 episodes of loose bowel movements today. Patient is tolerating oral intake, no nausea or vomiting. No abdominal pain. He has been up ambulating to the bathroom, tolerating activity well. We will continue holding his chlorthalidone. He denies any acute respiratory difficulty. His lung sounds are clear to auscultation. From pulmonary standpoint patient is cleared for discharge once cleared by other consultants. No acute pulmonary issues at this time. We will see the patient on as-needed basis. I performed a history & physical examination of the patient and discussed their management with my nurse practitioner, Jany Cox. I reviewed the nurse practitioner's note and agree with the documented findings and plan of care. Lung sounds are clear. The findings and the impression was discussed with the patient. I attest to the documentation by the nurse practitioner. Time with Patient: Less than 30
[2017-07-31] MEDS ORDERED: POTASSIUM CHLORIDE ER 20 MEQ TAB.ER PO STA (14:02)
[2017-07-31 15:34] VITALS: BP 93/62; PULSE 95; TEMP 98.4
--- NOTE | 2017-07-31 15:53 | PN ---
PROGRESS NOTE Patient is seen for followup for hyponatremia. He is currently off of all fluids. His serum sodium was at 129 this morning. He is comfortable. He feels well. Denies any significant complaints. He was admitted for influenza B. On examination, blood pressure is 105/69, heart rate 86 per minute. Patient is afebrile. He appears euvolemic, with no evidence of edema in his lower extremities. Labs show sodium 139, potassium 3.5, hemoglobin 15.9 g/dL. ASSESSMENT: 1. Hypovolemic hyponatremia, currently improved. We can allow the serum sodium level to rise. Patient wants to go home. He may be able to go home today with an order for repeat electrolytes to be done in about 2 days' time. 2. Hypokalemia, currently being replaced. Will give him another dose of potassium chloride. 3. Hypertension, controlled. 4. Influenza B, maintained on Tamiflu. PLAN: Oral potassium supplementation. Repeat sodium in a.m. if patient is not discharged. If he is discharged, he should repeat his labs in about 2-3 days' time as outpatient. MMODL / IJN: [id number] /
--- NOTE | 2017-07-31 19:56 | DS ---
DISCHARGE SUMMARY DATE OF ADMISSION: 07/28/2017. DATE OF DISCHARGE: 07/31/2017 FINAL DIAGNOSES: 1. Severe hypo-osmolar hyponatremia from poor salt intake. 2. Severe hypokalemia. 3. Acute viral gastroenteritis. 4. Acute influenza B infection. HOSPITAL COURSE: This patient presented weak, tired, nausea, vomiting, diarrhea; came back positive for influenza B and sodium of 105. The patient's respiratory symptoms were minimal when he presented except he was very weak and tired. The patient was initially treated with hypertonic saline salt tablets and sodium came up rather nicely. Sodium today is 129. The patient is okayed by Dr. Kay to be discharged. Patient is very keen to go home. On examination, lungs are clear. CARDIOVASCULAR: First and second sounds normal. PSYCH: Alert and oriented x3. Patient is tolerating his diet. DISCHARGE MEDICATIONS: 1. Telmisartan 80 mg p.o. daily. 2. Celexa 10 mg p.o. daily. 3. Multivitamin 1 tablet p.o. daily. The patient is to take his blood pressure daily. Once the blood pressure is above 130/80 for 2 consecutive days, then patient may to go back on his telmisartan. The patient's diuretics have been discontinued. Follow up with Dr. Wright on 08/05/2017. BMP in 3 days. MMODL / BHAVANIN: [id number] /
== END 2017-07-31 16:53 | disposition home or self-care (01) | DRG 194 ==
LOC: EC 18:16 → 6ICU 20:41 → 4MS4W 07-30 17:03
PROVIDERS: ADMIT Hospitalist; ATTEND Hospitalist
DX: J10.1 Influenza due to other identified influenza virus with other respiratory manifestations (principal); E87.1 Hypo-osmolality and hyponatremia; E87.8 Other disorders of electrolyte and fluid balance, not elsewhere classified; E83.39 Other disorders of phosphorus metabolism; A08.4 Viral intestinal infection, unspecified; E87.6 Hypokalemia; I10 Essential (primary) hypertension; E86.0 Dehydration; E86.1 Hypovolemia; Z79.899 Other long term (current) drug therapy
CPT/HCPCS: 36415; 71046; 80048; 80053; 81001; 82533; 82570; 83690; 83735; 83930; 83935; 84100; 84132; 84133; 84295; 84300; 84560; 85025; 87502; 96361; 96374; 96375; 99285

== ENCOUNTER → 2018-10-07 | Outpatient (CLI) | payer BC ==
--- NOTE | 2018-10-07 08:10 | US ---
EXAMINATION TYPE: US liver DATE OF EXAM: 10/07/2018 COMPARISON: US CLINICAL HISTORY: R74.8 elevated liver enzymes. Elevated LFT's, pt has no complaints at this time EXAM MEASUREMENTS: Liver Length: 14.8 cm Gallbladder Wall: 0.3 cm CBD: 0.5 cm Right Kidney: 9.2 x 4.4 x 4.2 cm Pancreas: Obscured by bowel gas Liver: Appeared wnl Gallbladder: wnl Evidence for sonographic Gabriel's sign: No CBD: wnl Right Kidney: wnl IMPRESSION: 1. No distinct abnormality seen.
== END | disposition home or self-care (01) ==
LOC: RADUSWWP 07:34
PROVIDERS: ATTEND Family Medicine
DX: R74.8 Abnormal levels of other serum enzymes (principal)
CPT/HCPCS: 76705

== ENCOUNTER → 2020-03-29 | Outpatient (CLI) | payer BC ==
--- NOTE | 2020-03-29 15:58 | US ---
EXAMINATION TYPE: US thyroid st tissue head/neck DATE OF EXAM: 03/29/2020 COMPARISON: NONE CLINICAL HISTORY: E04.9 Nontoxic Goiter Unspecified. Enlarged thyroid per patient's physician GLAND SIZE: Right Lobe: 4.1 x 1.3 x 1.7 cm Overall Parenchyma: homogenous Left Lobe: 4.2 x 1.1 x 1.2 cm Overall Parenchyma: homogeneous Isthmus Thickness: 0.3 cm NODULES RIGHT: # of nodules measured on right: 0 LEFT: # of nodules measured on left: 0 ISTHMUS: # of nodules measured in the isthmus: 0 Bilateral neck scanned, no evidence of lymphadenopathy. IMPRESSION: No distinct abnormality identified at this time.
== END | disposition home or self-care (01) ==
LOC: RADUSWWP 15:28
PROVIDERS: ATTEND Family Medicine
DX: E04.9 Nontoxic goiter, unspecified (principal)
CPT/HCPCS: 76536

== ENCOUNTER 2020-04-08 08:12 | Day surgery (SDC) | payer BC ==
[2020-04-07 09:29] VITALS: BMI 29.5
[~2020-04-08 08:12] MED LIST: LIDOCAINE 1% (10MG/ML) FOR IV START INTRADERMA PRN
[2020-04-08 09:28] VITALS: RESP 16; TEMP 97.4
[2020-04-08] MEDS: LACTATED RINGERS 1,000 ML IV SCH ×2 (09:34→10:39)
[2020-04-08] MEDS ORDERED: LIDOCAINE 1% INJ 10MG/ML (20 ML MDV) ONE (10:40)
[2020-04-08] MEDS ORDERED: PROPOFOL 10 MG/ML 20 ML VIAL IV ONE (10:40)
[2020-04-08] MEDS ORDERED: IV FLUID CONTINUATION 1,000 ML IV ONE (10:41)
--- NOTE | 2020-04-08 11:05 | P.PCN ---
Date of Procedure: 04/08/20 Procedure(s) Performed: BRIEF HISTORY: Patient is a 55-year-old pleasant s male scheduled for an elective colonoscopy as a part of evaluation of prior history of colon polyps. Last coloscopy was 5 years ago. PROCEDURE PERFORMED: Colonoscopy. with snare polypectomy PREOPERATIVE DIAGNOSIS: History of colon polyps IVsedation per Anesthesia. PROCEDURE: After informed consent was obtained, the patient, was brought into the endoscopy unit. IV sedation was administered by Anesthesia under continuous monitoring. Digital rectal examination was normal. Initially the Olympus CF-160 flexible video colonoscope was then inserted in the rectum, gradually advanced into the cecum without any difficulty. Careful examination was performed as the scope was gradually being withdrawn. Ileocecal valve and the appendiceal orifice were visualized and appeared normal. Prep was excellent. The base of the cecum there was a 1 cm polyp removed by snare polypectomy. In the transverse colon there was a polyp removed by snare polypectomy. Rest of the 5 mm sessile polyp snare polypectomy and rectum was a 2 mm polyp removed by snare polypectomy. Retroflexion was performed in the rectum and no lesions were seen. The patient tolerated the procedure well. IMPRESSION: 1 cm cecal polyp status post polypectomy 5 mm transverse colon polyp status post polypectomy 5 mm sigmoid colon polyp status post polypectomy 2 mm rectal polyp status post polypectomy RECOMMENDATIONS: Findings of this examination were discussed with the patient as well as his family. He was advised to follow with the biopsy results. If the biopsy shows an adenoma he can have a repeat colonoscopy in 3-5 years
[2020-04-08 11:31] VITALS: BP 131/72; PULSE 80
== END 2020-04-08 11:31 | disposition home or self-care (01) ==
LOC: ORWHC2ENDO 08:12
PROVIDERS: ATTEND Internal Medicine Gastroenterology
DX: Z12.11 Encounter for screening for malignant neoplasm of colon (principal); Z86.010 Personal history of colon polyps; D12.0 Benign neoplasm of cecum; D12.5 Benign neoplasm of sigmoid colon; D12.8 Benign neoplasm of rectum; I10 Essential (primary) hypertension; Z98.890 Other specified postprocedural states; Z79.899 Other long term (current) drug therapy
CPT/HCPCS: 88305; 45385; J2001; J2704

== ENCOUNTER → 2021-11-03 | Outpatient (CLI) | payer OTHER ==
--- NOTE | 2021-11-03 23:09 | US ---
EXAMINATION TYPE: US carotid duplex BILAT DATE OF EXAM: 11/03/2021 COMPARISON: NONE CLINICAL HISTORY: R42 Dizziness and giddiness. Dizziness EXAM MEASUREMENTS: RIGHT: Peak Systolic Velocity (PSV) cm/sec ----- Right CCA: 83.1 ----- Right ICA: 77.3 ----- Right ECA: 97.8 ICA/CCA ratio: 0.9 RIGHT: End Diastole cm/sec ----- Right CCA: 22.6 ----- Right ICA: 23.2 ----- Right ECA: 13.7 LEFT: Peak Systolic Velocity (PSV) cm/sec ----- Left CCA: 76.5 ----- Left ICA: 68.8 ----- Left ECA: 95.3 ICA/CCA ratio: 0.9 LEFT: End Diastole cm/sec ----- Left CCA: 17.1 ----- Left ICA: 11.7 ----- Left ECA: 15.0 VERTEBRALS (direction of flow): Right Vertebral: Antegrade Left Vertebral: Antegrade Rhythm: Normal Mild peripheral hyperechoic plaque in right carotid bulb on grayscale images. The left side shows no significant focal plaque. Velocity measurements and ratios remain within normal limits. IMPRESSION: No hemodynamically significant stenosis in either internal carotid artery. Criteria for Assigning % of Stenosis / Diameter reduction (Estimation based on the indirect measurements of the internal carotid artery velocities (ICA PSV). 1. Normal (no stenosis)=ICA PSV < 125 cm/s: ratio < 2.0: ICA EDV<40 cm/s. 2. Less than 50% stenosis=ICA PSV < 125 cm/s: ratio < 2.0: ICA EDV<40 cm/s. 3. 50 to 69% stenosis=ICA PSV of 125 to 230 cm/s: ration 2.0 ? 4.0: ICA EDV 40-100 cm/s. 4. Greater than 70% stenosis to near occlusion= ICA PSV > 230 cm/s: ratio > 4.0: ICA EDV > 100 cm/s. 5. Near occlusion= ICA PSV velocities may be low or undetectable: variable ratio and ICA EDV. 6. Total occlusion=unable to detect flow.
== END | disposition home or self-care (01) ==
LOC: RADUSWWP 16:41
PROVIDERS: ATTEND Family Medicine
DX: R42 Dizziness and giddiness (principal)
CPT/HCPCS: 93880